=== PATIENT | female | born 1970 | race Caucasian/White ===

== ENCOUNTER 2024-02-28 20:06 | Emergency (ER) | payer OTHER, SELFPAY ==
[2024-02-28 20:08] VITALS: BP 141/85
[2024-02-28 20:23] VITALS: BMI 33.5
[2024-02-28 20:27] VITALS: BP 142/79
--- NOTE | 2024-02-28 20:28 | ED.GENMED ---
History of Present Illness
General
Chief Complaint: Headache
Time Seen by Provider: 02/28/24 20:23
History of Present Illness
History of Present Illness:
53-year-old female presents to the emergency department for evaluation of abrupt onset of severe headache developing about 1 hour prior to arrival. She reports she is currently being treated for sinusitis with antibiotics and a Medrol Dosepak, has
taken 4 days of medications thus far. She reports a sensation of blurry vision in both eyes but does admit that after having cataract surgery recently she has had persistent blurry vision since that time. No focal eye pain. Does report
photophobia and nausea with no vomiting. Headache is severe, no history of primary headaches.
Review of Systems
Review of Systems
Allergies reviewed?: Yes
All Other Systems: ROS reviewed and negative except as documented in HPI and ROS
Phy Exam
Physical Exam
Physical Exam:
GEN: Well appearing, NAD, WDWN
HEENT: Oral mucosa moist, no scleral icterus, no nasal congestion. Unrestricted neck range of motion, no meningismus
Cardiac: Regular rate and rhythm, no murmurs
Lung: No respiratory distress, no tachypnea, lungs clear to auscultation bilaterally
MSK: No gross deformity or injuries
Skin: Good color, no pallor or jaundice, no rashes
Neuro: AO x3; CN II-XII grossly intact. BUE strength 5/5 in all balderas, sensation intact and symmetric. BLE strength 5/5 in all balderas, sensation intact and symmetric
Psych: Calm, cooperative
Course
Orders/Labs/Results
Orders:
Orders
02/28/24 20:26
CT Head W/o Iv Contrast Urgent
Comment:
Reason For Exam: blurry vision
02/28/24 20:28
C-Reactive Protein Urgent
Comment: ADD ON
CMP [Comprehensive Metabolic Panel] Urgent
Complete Blood Count/With Diff Urgent
HYDROmorphone [Dilaudid] 0.5 mg IV NOW STA
02/28/24 20:32
Ondansetron Injectable [Zofran] 4 mg .ROUTE .STK-MED ONE
02/28/24 20:33
Ondansetron Injectable [Zofran] 4 mg IV NOW STA
02/28/24 22:05
Ketorolac [Toradol] 15 mg IV NOW STA
Magnesium Sulfate 2 Gram/50 ml [Magnesium Sulfate] 2 gram in 50 ml IV NOW
Metoclopramide [Reglan] 10 mg IV NOW STA
02/28/24 23:03
Add On- LAB Urgent
Tests Added?: CRP
02/28/24 23:08
Valproate Sodium [Depacon] 500 mg 0.9% Sodium Chloride 50 ml [Nss] 50 ml IV NOW
Abnormal Lab Results
02/28/24
20:28
WBC 11.3 H 10^3/uL
(4.8-10.8)
RBC 3.95 L 10^6/uL
(4.20-5.40)
Hct 36.3 L %
(37.0-47.0)
MCH 31.4 H pg
(27.0-31.0)
Abs Immat Gran (auto) 0.1 H 10^3/uL
(0-0.05)
Absolute Lymphs (auto) 4.1 H 10^3/uL
(1.2-3.4)
Absolute Monos (auto) 1.0 H 10^3/uL
(0.1-0.6)
BUN 30 H mg/dl
(7-17)
02/28/24 20:28
02/28/24 20:28
Vital Signs
Initial and Last Documented VS:
Initial Vital Signs
Temp Pulse Resp BP Pulse Ox
97.8 F 70 18 141/85 100
02/28/24 20:08 02/28/24 20:08 02/28/24 20:08 02/28/24 20:08 02/28/24 20:08
Last Documented Vital Signs
Temp Pulse Resp BP Pulse Ox
97.8 F 70 18 104/65 97
02/28/24 20:08 02/28/24 20:08 02/28/24 20:08 02/28/24 22:52 02/28/24 22:53
MDM/Problems Addressed
MDM/Problems Addressed:
Patient sent for urgent CT scan due to the abrupt onset of severe headache and this was negative for subarachnoid hemorrhage. She was then treated with migraine cocktail with only modest improvement. Given her reported visual changes CRP was added
and second migraine therapy with valproate was administered. CRP was negative ruling out giant cell arteritis and apparently provided for family. Discharged in stable condition
*Critical Care Note
Total Time (30-74mins, 75-104mins- exclusive of procedures): Not Applicable
ED Attending Note
-
Portions of this chart may have been created with voice recognition software.� Occasional wrong word or��sound alike� substitutions may have occurred due to the inherent limitations of voice recognition software.
Discharge Plan
Departure
Patient Disposition: Home (Routine Discharge)
Date of Disposition: 02/28/24
Time of Disposition: 23:47
Patient with high blood pressure during this ER visit?: No
Discharge Problem:
Headache
Instructions: Headache, Adult (DC)
Referrals:
Cj Scott MD [Family Provider] -
Interventions
Interventions:
*Risk Screen - Suicide Last Done: 02/28/24 20:08
*General Assessment Last Done: 02/28/24 20:08
*Neglect/Abuse Screening Last Done: 02/28/24 20:08
ED- Fall Risk Assessment Last Done: 02/28/24 20:23
*ED COVID-19 Vaccine History Last Done: 02/28/24 20:08
ED- Neurological Assessment Last Done: 02/28/24 20:26
Discharge Date and Time
Print Language: YORUBA
[2024-02-28] MEDS: DILAUDID 0.5 MG IV (20:33)
[2024-02-28] MEDS: ZOFRAN 4 MG IV (20:33)
[2024-02-28 20:36] LABS: % Basophils 0.6 % (0-2); % Eosinophils 0.7 % (0-6); % Immature Granulocytes 0.4 % (0-0.5); % Lymphocytes 36.6 % (20.5-51.1); % Neutrophils 52.7 % (42.2-75.2); Absolute Basophils 0.1 10^3/uL (0-0.2); Absolute Eosinophils 0.1 10^3/uL (0-0.7); Absolute Immature Granulocytes 0.1 10^3/uL (0-0.05); Absolute Lymphocytes 4.1 10^3/uL (1.2-3.4); Absolute Neutrophils 5.9 10^3/uL (1.4-6.5); Hematocrit 36.3 % (37.0-47.0); Hemoglobin 12.4 g/dL (12.0-16.0); Mean Corp Hgb Conc. 34.2 g/dL (33.0-37.0); Mean Corpuscular Hgb 31.4 pg (27.0-31.0); Mean Corpuscular Volume 91.9 fL (81.0-99.0); Mean Platelet Volume 10.1 fL (7.4-10.4); Nucleated Red Blood Cells % 0 %; Platelet Count 276 10^3/uL (130-400); Red Blood Cell Count 3.95 10^6/uL (4.20-5.40); Red Cell Dist. Width 12.3 % (11.5-14.5); White Blood Cell Count 11.3 10^3/uL (4.8-10.8)
[2024-02-28 20:54] LABS: ALT (SGPT) 21 U/L (0-35); AST (SGOT) 29 U/L (14-36); Albumin 4.6 g/dl (3.5-5.0); Alkaline Phosphatase 54 U/L (38-126); Blood Urea Nitrogen 30 mg/dl (7-17); Calcium 9.7 mg/dl (8.4-10.2); Carbon Dioxide 25 mmol/L (22-30); Chloride 100 mmol/L (98-107); Estimated Creatinine Clearance 74 ml/min; Glucose 98 mg/dl (70-99); Potassium 4.6 mmol/L (3.5-5.1); Sodium 136 mmol/L (135-145); Total Bilirubin 0.2 mg/dl (0.2-1.3); Total Protein 7.4 g/dl (6.3-8.2); eGFR > 60.00
[2024-02-28 21:00] VITALS: BP 131/80
--- NOTE | 2024-02-28 21:15 | EDRN ---
Updated patient on labs and where she is for CT
[2024-02-28] MEDS: REGLAN 10 MG IV (22:10)
[2024-02-28] MEDS: TORADOL 15 MG IV (22:10)
[2024-02-28] MEDS: MAGNESIUM SULFATE 50 IV (22:11)
--- NOTE | 2024-02-28 22:14 | EDRN ---
PETER Malhotra back in to speak [facility] patient about results and plan for more meds
[2024-02-28 22:52] VITALS: BP 104/65
--- NOTE | 2024-02-28 22:55 | EDRN ---
Patient states after meds is still having a headache, informed PETER robertson covering case
[2024-02-28 23:00] VITALS: BP 108/64
[2024-02-28] MEDS: DEPACON 55 MG IV (23:22)
--- NOTE | 2024-02-28 23:29 | EDRN ---
Patient headache is about a 4/10 will re-assess after meds
[2024-02-28 23:43] LABS: C-Reactive Protein < 5.00 mg/L (0.0-10.00)
--- NOTE | 2024-02-29 00:12 | EDRN ---
Patient feeling much better
== END 2024-02-29 00:13 | disposition home or self-care (01) ==
LOC: EMR 20:06
PROVIDERS: EMERGENCY PHYSICIAN Student in an Organized Health Care Education/Training Program; FAMILY PHYSICIAN Family Medicine
DX: R51.9 Headache, unspecified (principal)
CPT/HCPCS: 99284; 96365; 96374; 96367; 96375 ×3; 70450; 80053; 85025; 86140